=== PATIENT | female | born 1990 | race Caucasian/White ===

== ENCOUNTER 2021-11-18 14:16 | Emergency (ER) | payer SELFPAY ==
[2021-11-18] MEDS ORDERED: Boostrix 0.5 ML (Tdap) VIAL ONE (15:00)
[2021-11-18] MEDS ORDERED: Ibuprofen 200 MG TAB ONE (15:00)
[2021-11-18] MEDS ORDERED: Bacitracin 1 PK ONE ×2 (15:21→15:58)
[2021-11-18] MEDS ORDERED: Sulfameth/Trimethoprim DS 800-160mg TAB ONE (15:58)
== END 2021-11-18 15:50 | disposition home or self-care (01) ==
LOC: NAV ERS 14:16
DX: S62.633B Displaced fracture of distal phalanx of left middle finger, initial encounter for open fracture (principal); Z23 Encounter for immunization; W23.0XXA Caught, crushed, jammed, or pinched between moving objects, initial encounter
CPT/HCPCS: 90471; 90715